=== PATIENT | female | born 1995 | race Caucasian/White ===

== ENCOUNTER → 2024-08-02 | Outpatient (CLI) | payer OTHER, SELFPAY ==
--- NOTE | 2024-08-02 12:20 | XR_ITS ---
Examination: Breast ultrasound, unilateral, left complete Date and time of exam: August 02, 2024 1232 hours INDICATIONS: Left breast redness pain and swelling 3 months, family history breast cancer, positive BRCA gene Technique: Real-time medel scale ultrasonographic imaging performed left breast including all 4 quadrants as well as nipple retroareolar and axillary region. Findings: 9:00 oval mass partially indistinct margins, 3 x 1 x 2 cm IMPRESSION: BI-RADS Category 4: Suspicious for malignancy Suspicious mass 9:00 position left breast Biopsy is needed to exclude breast carcinoma This mass is amenable to ultrasound-guided breast biopsy for diagnosis Recommend diagnostic mammography follow-up
== END | disposition home or self-care (01) ==
LOC: CDIM 12:11
PROVIDERS: PCP Internal Medicine; Referring Provider Specialist; Visit Provider Specialist
DX: N63.25 Unspecified lump in the left breast, overlapping quadrants (principal)
CPT/HCPCS: 76641

== ENCOUNTER → 2024-08-07 | Outpatient (CLI) | payer OTHER, SELFPAY ==
--- NOTE | 2024-08-07 08:57 | XR_ITS ---
Examination: Diagnostic digital mammography, unilateral, left Computer aided detection 3-D breast Tomosynthesis, unilateral Date and time of exam: August 07, 2024 0905 hours INDICATIONS: Ultrasound August 02, 2024 suspicious mass 9:00 position left breast measuring 3 x 1 x 2 cm Technique: Nonmagnified MLO, CC views of the left breast have been obtained, reconstructed from 3-D Tomosynthesis images. R2 computer aided detection program utilized for evaluation of suspicious masses and/or abnormal calcifications. 3-D Tomosynthesis images obtained. Findings: The breast is heterogeneously dense, which may obscure small masses Spot compression films to confirm 3.2 cm mass inner right breast Impression: BI-RADS category 4: Suspicious for malignancy Suspicious mass 9:00 position left breast, best depicted on the left breast sonogram August 02, 2024, biopsy is needed to exclude breast carcinoma, this mass is amenable to ultrasound-guided breast biopsy for diagnosis
== END | disposition home or self-care (01) ==
LOC: CDIM 08:54
PROVIDERS: PCP Internal Medicine; Referring Provider Specialist; Visit Provider Specialist
DX: R92.342 Mammographic extreme density, left breast (principal); N63.25 Unspecified lump in the left breast, overlapping quadrants
CPT/HCPCS: 77061; 77065; G0279

== ENCOUNTER → 2024-08-16 | Outpatient (CLI) | payer OTHER, SELFPAY ==
[2024-08-15 15:46] LABS: Basophils # (Auto) 0.1 Thou/mm3 (0.0-0.2); Basophils % (Auto) 1 % (0-2.5); Eosinophils # (Auto) 0.4 Thou/mm3 (0.0-0.5); Eosinophils % (Auto) 6 % (0-10); Hematocrit 38.7 % (36.0-46.0); Hemoglobin 12.7 g/dL (12.0-16.0); Immature Granulocytes % (Auto) 0 % (0-0); Immature Granulocytes Auto 0.01 Thou/mm3 (0.00-0.00); Lymphocytes % (Auto) 31 % (10-50); Mean Corpuscular HGB Conc 32.8 g/dl (31.0-37.0); Mean Corpuscular Volume 88 fL (80-100); Monocytes # (Auto) 0.6 Thou/mm3 (0.0-0.8); Monocytes % (Auto) 9 % (0-12); Neutrophils # (Auto) 3.4 Thou/mm3 (1.8-7.7); Neutrophils % (Auto) 53 % (37-80); Nucleated Red Blood Cell % 0 /100 WBC (0); Platelet Count 383 Thou/mm3 (140-440); RDW Standard Deviation 45.4 fL (36.4-46.3); Red Blood Count 4.38 Miln/mm3 (4.00-5.20); White Blood Count 6.4 Thou/mm3 (3.6-11.0)
[2024-08-15 15:54] LABS: Partial Thromboplastin Time 24.8 Seconds (22.0-36.0); Prothrombin Time 10.5 Seconds (9.0-12.2)
[2024-08-15 17:05] LABS: HCG,Qualitative Serum Negative
--- NOTE | 2024-08-16 09:30 | XR_ITS ---
Examinations: Ultrasound-guided percutaneous breast biopsy, left breast 9:00 nodule Left breast sonography limited. Exam date and time: August 16, 2024 1001 hours INDICATIONS: Left breast sonogram August 02, 2024 BI-RADS 4 suspicious mass 10:00 position left breast. Informed consent provided. Technique: A timeout was completed verifying correct patient, procedure, site, positioning, and special equipment if applicable Informed consent provided. The patient was placed in a supine position for the breast biopsy. Sonographic images of the breast were performed for localization of the suspicious nodule The patient's breast was prepped and draped in sterile fashion. Maximum sterile barrier technique, hand hygiene, ultrasound sterile technique 1% lidocaine was used to anesthetize the skin and breast adjacent to the suspicious nodule. Utilizing ultrasonographic guidance, 8 core biopsies were obtained of the suspicious nodule utilizing an 18-gauge BioPince needle. The specimens appears satisfactory. Estimated blood loss 3 cc. The patient tolerated the procedure well and there were no complications. Impression: Successful ultrasound-guided percutaneous breast biopsy, left breast 9:00 nodule.
== END | disposition home or self-care (01) ==
LOC: SDIM 08:57 → SIRX 09:56
PROVIDERS: Radiology Diagnostic Radiology; PCP Internal Medicine; Referring Provider Specialist; Visit Provider Specialist
DX: D24.2 Benign neoplasm of left breast (principal); N60.22 Fibroadenosis of left breast; Z01.812 Encounter for preprocedural laboratory examination
CPT/HCPCS: 19083; 36415; 84703; 85025; 85610; 85730

== ENCOUNTER → 2024-10-10 | Outpatient (CLI) | payer OTHER, SELFPAY ==
--- NOTE | 2024-10-10 15:30 | XR_ITS ---
Examination: CT abdomen and pelvis without contrast. Coronal 3-D reconstructions. Sagittal 2-D reconstructions. Date and time of exam:October 10, 2024 1611 hours INDICATIONS: Ventral hernia diagnosis CTDI: vol (mGy): 7.20 DLP: (mGycm): 385 Technique: Axial images of the abdomen have been obtained, 3 mm slice thickness Intravenous contrast material has not been administered. Low dose protocols were performed. One or more of the following dose reduction techniques were used; automated exposure control, adjustment of the mA and/or KV according to patient size, use of iterative reconstruction technique. Findings: No focal liver or splenic lesion No gallstones No pancreatic or adrenal mass No renal or ureteral calculi, no hydronephrosis Fat-containing umbilical hernia, 3 cm No bowel obstruction No pericecal inflammatory change Anteverted uterus Negative for diverticulitis Urinary bladder intact IMPRESSION: 3 cm fat-containing umbilical hernia
[2024-10-10 15:50] LABS: HCG Qualitative,Urine Negative
== END | disposition home or self-care (01) ==
LOC: CCTX 14:38
PROVIDERS: PCP Internal Medicine; Referring Provider Surgery; Visit Provider Surgery
DX: K42.9 Umbilical hernia without obstruction or gangrene (principal); Z32.00 Encounter for pregnancy test, result unknown
CPT/HCPCS: 74176; 81025

== ENCOUNTER → 2025-08-22 | Outpatient (CLI) | payer OTHER, SELFPAY ==
--- NOTE | 2025-08-22 10:00 | XR_ITS ---
Examination: Breast ultrasound complete, bilateral Date and time of exam: August 22, 2025, 1002 hours INDICATIONS: History left breast biopsy with lumpectomy 9 o'clock position negative, family history of breast cancer positive BRCA gene Technique: Real-time grayscale ultrasonographic imaging bilateral breasts, including all 4 quadrants as well as nipple retroareolar and axillary regions. Findings: Sonographic images right breast No cystic or solid mass Sonographic images left breast 4:00 nodule 5 x 5 mm circumscribed IMPRESSION: BI-RADS Category 3: Probably benign findings Recommend 1 additional 6-month left breast mammogram follow-up to document stability of 4:00 nodule described above
== END | disposition home or self-care (01) ==
LOC: CDIM 09:47
PROVIDERS: PCP Internal Medicine; Referring Provider Surgery; Visit Provider Surgery
DX: N63.13 Unspecified lump in the right breast, lower outer quadrant (principal)
CPT/HCPCS: 76641